=== PATIENT | female | born 1950 | race Caucasian/White ===

== ENCOUNTER → 2017-12-28 | Outpatient (CLI) | payer MEDICARE, OTHER ==
[~2017-12-28] MED LIST: ACETAMINOPHEN-1 EAC1 PO; CHLORDIAZEPOXID10 MG PO; CIPRO500 MG PO; CIPROFLOXACIN500 M3 OR; CIPROFLOXACIN500 M3 PO; CLEOCIN HCL150 MG PO; CYMBALTA PO; FLAGYL500 MG; FLAGYL500 MG PO; HYDROCHLOROTH12.5 MG PO; LOPRESSOR 50 MG50 M1 PO; NORCO 5-325 TA1 EACH PO; ONDANSETRON HCL4 M2 PO; ONDANSETRON HCL4 M3 PO; PROTONIX40 M2 PO; XANAX 0.5 MG0.5 MG PO; ZANTAC 150MG T150 M1 PO; ZOFRAN4 MG PO
== END ==
LOC: M.MRI 16:52
DX: M75.51 Bursitis of right shoulder (principal)

== ENCOUNTER → 2019-06-25 | Outpatient (CLI) | payer MEDICARE, OTHER | LOC: M.RAD 10:18 | DX: Z12.31 Encounter for screening mammogram for malignant neoplasm of breast (principal) ==

== ENCOUNTER 2019-10-14 17:26 | Emergency (ER) | payer MEDICARE, OTHER ==
[~2019-10-14] VITALS: Ht 157.5 cm; Wt 65.8 kg
--- NOTE | ~2019-10-14 | EKG ---
[place] [address] ELECTROCARDIOGRAM REPORT Name: WINTER GOODE Room: [facility]#: [id number] Admission: 10/14/19 Attend Phys: Discharge: 10/14/19 Date of : 52 Date of Service: 10/14/191814 Report #: [id number] THIS REPORT FOR: cc: Maria Fernanda Mcwilliams Dorothy L. RNP Epiphany, Epiphany MD ~ THIS REPORT FOR: //name// [facility] ED Test Date: 2019-10-14 Test Time: 18:15:57 Pat Name: WINTER GOODE Department: Room: Gender: F Full Decator Operator: OMARI : 1950 Requested By: Arias Bush Order Number: [id number] MD: Measurements Intervals [place] Rate: 59 P: 57 TN: 195 QRS: -22 QRSD: 110 T: 25 QT: 421 QTc: 417 Interpretive Statements Sinus rhythm Probable left atrial enlargement Left ventricular hypertrophy Compared to ECG 04/14/2011 11:56:12 No significant changes [email or web address] By: 14 14 Epiphany Epiphany, /ELIAN
[2019-10-14] MEDS ORDERED: CRESTOR5 MG PO (17:36)
[2019-10-14] MEDS ORDERED: DULOXETINE HCL60 MG PO (17:36)
[2019-10-14] MEDS ORDERED: INTERMEZZO3.5 MG SUBLING (17:37)
[2019-10-14] MEDS ORDERED: FAMOTIDINE40 MG PO (17:37)
[2019-10-14 18:25] LABS: ABSOLUTE BASOPHILS 0.1 thou/uL (0.0-0.2); ABSOLUTE EOSINOPHILS 0.5 thou/uL (0.0-0.7); ABSOLUTE MONOCYTES 0.6 thou/uL (0.0-1.2); ABSOLUTE NEUTROPHILS 5.5 thou/uL (1.6-8.1); BASOPHILS 1.1 %; EOSINOPHILS 5.9 %; HEMATOCRIT 39.9 % (37.0-47.0); HEMOGLOBIN 13.5 gm/dL (12.0-15.0); LYMPHOCYTES 23.4 %; MCH 30.4 pg (26.0-34.0); MCHC 33.8 g/dL (28.0-37.0); MCV 90.1 fL (80.0-100.0); MONOCYTES 6.5 %; MPV 10.5 fl. (7.2-11.1); NUCLEATED RBCS 0 /100WBC; PLATELET COUNT* 273 thou/uL (150-400); POLYS 63.1 %; RBC 4.43 mil/uL (4.20-5.00); RDW-CV 13.7 % (10.5-14.5); WBC 8.7 thou/uL (4.0-11.0)
[2019-10-14 18:32] LABS: CALCIUM 8.5 mg/dL (8.5-10.1); CREATININE 0.9 mg/dL (0.6-1.3); POTASSIUM 3.7 mmol/L (3.5-5.1)
[2019-10-14 18:36] LABS: ALBUMIN 3.9 g/dL (3.4-5.0); TOTAL BILIRUBIN 0.3 mg/dL (<0.1-1.0); TOTAL PROTEIN 7.3 g/dL (6.4-8.2)
[2019-10-14 20:21] VITALS: BP 214/83
[2019-10-14] MEDS ORDERED: BUTALB-APAP-CA1 EACH PO (20:28)
== END 2019-10-14 20:22 | disposition home or self-care (01) ==
LOC: M.ERS 17:26
PROVIDERS: Emergency Medicine Emergency Medical Services
DX: H53.8 Other visual disturbances (principal); I10 Essential (primary) hypertension; F32.9 Major depressive disorder, single episode, unspecified; Z90.710 Acquired absence of both cervix and uterus; Z90.49 Acquired absence of other specified parts of digestive tract; Z88.6 Allergy status to analgesic agent; Z88.5 Allergy status to narcotic agent

== ENCOUNTER 2021-04-30 13:13 | Emergency (ER) | payer MEDICARE, OTHER ==
[~2021-04-30] VITALS: Ht 157.5 cm; Wt 65.8 kg
[~2021-04-30 13:13] MED LIST changes: +BUTALB-APAP-CA1 EACH PO; +CRESTOR5 MG PO; +DULOXETINE HCL60 MG PO; +FAMOTIDINE40 MG PO; +INTERMEZZO3.5 MG SUBLING
[2021-04-30] MEDS ORDERED: ASA81BEC PO (13:24)
[2021-04-30] MEDS ORDERED: DILTIAZEM ER180 M2 PO (13:24)
[2021-04-30] MEDS ORDERED: LIPITOR 40 MG T40 M1 PO (13:24)
[2021-04-30] MEDS ORDERED: SENNA PLUS TAB1 EACH PO (13:24)
[2021-04-30] MEDS ORDERED: CEPHALEXIN500 MG PO (15:32)
[2021-04-30] MEDS ORDERED: AUGMENTIN 875-1 EACH PO (15:35)
[2021-04-30 15:42] VITALS: BP 150/70
== END 2021-04-30 15:42 | disposition home or self-care (01) ==
LOC: M.ERS 13:13
DX: S61.451A Open bite of right hand, initial encounter (principal); L03.113 Cellulitis of right upper limb; F32.9 Major depressive disorder, single episode, unspecified; I10 Essential (primary) hypertension; Z90.711 Acquired absence of uterus with remaining cervical stump; Z90.49 Acquired absence of other specified parts of digestive tract; Z98.890 Other specified postprocedural states; Z79.899 Other long term (current) drug therapy; Z79.82 Long term (current) use of aspirin; Z88.6 Allergy status to analgesic agent; Z88.5 Allergy status to narcotic agent; Z88.8 Allergy status to other drugs, medicaments and biological substances; W54.0XXA Bitten by dog, initial encounter; Y93.89 Activity, other specified; Y92.89 Other specified places as the place of occurrence of the external cause; Y99.8 Other external cause status